=== PATIENT | male | born 1970 | race Caucasian/White ===

== ENCOUNTER 2021-06-02 18:08 | Emergency (ER) | payer OTHER ==
[2021-06-02 18:22] VITALS: BP 150/92
--- NOTE | 2021-06-02 19:39 | ED Physician Documentation ---
History of Present Illness - Stated complaint Stated Complaint: NOSE INJURY - Chief complaint Chief Complaint: Laceration - History obtained from History obtained from: Patient - History of Present Illness Timing: Today Pain level max: 5 Pain level now: 4 - Additonal information Additional information: Patient is a 50-year-old male who was at work today when a pipe came down and struck him across the bridge of the nose causing a laceration. This happened several hours prior to arrival. Unknown last tetanus. Worse with palpation, nothing makes it better. No headache, no loss of consciousness. No epistaxis. No vision changes. No neck or back pain Review of Systems Constitutional: denies: Fever, Chills GI: denies: Vomiting Skin: denies: Rash Musculoskeletal: denies: Neck pain, Back pain Neurologic: denies: Seizure, Confused, LOC PD PAST MEDICAL HISTORY - Past Medical History Past Medical History: No - Past Surgical History Past Surgical History: Yes HEENT: Other - Present Medications Home Medications: Ambulatory Orders Medication Instructions Recorded Confirmed No Known Home Medications 06/02/21 06/02/21 - Allergies Allergies/Adverse Reactions: Allergies Allergy/AdvReac Type Severity Reaction Status Date / Time ciprofloxacin [From Cipro] Allergy Rash Verified 06/02/21 18:19 - Social History Does the pt smoke?: No Smoking Status: Never smoker Does the pt drink ETOH?: Yes Does the pt have substance abuse?: No - Immunizations Immunizations are current?: Yes PD ED PE NORMAL - Vitals Vital signs reviewed: Yes - General General: Alert and oriented X 3, No acute distress - HEENT HEENT: PERRL, Moist mucous membranes, Other (No scalp hematomas. There is a 1 cm laceration to the bridge of the nose. Mild swelling. No septal hematomas. No epistaxis. No facial bone tenderness other than the bridge of the nose. No d eformity. 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, No motor deficit, No sensory deficit, Normal speech Eye Opening: Spontaneous Motor: Obeys Commands Verbal: Oriented GCS Score: 15 Results - Vitals Vitals: Oxygen O2 Source Room air Procedures - Laceration (location) nasal Length in cm: 1 Wound type: Linear, Superficial Neurovascular status: Sensory intact, Motor intact, Vascular intact Wound preparation: Irrigated copiously NS Skin layer closure: Dermabond Other: Patient tolerated well, No complications, Neurovascular intact, Tetanus booster given PD MEDICAL DECISION MAKING - ED course Complexity details: considered differential, d/w patient ED course: Laceration repaired with Dermabond. Tolerated well. No indication for head CT or imaging of the nasal bones at this time. No septal hematoma. Warnings of infection and instructions on wound care given at bedside. Also counseled on how to minimize scarring. Patient counseled regarding signs and symptoms for which I believe and urgent re-evaluation would be necessary. Patient with good understanding of and agreement to plan and is comfortable going home at this time This document was made in part using voice recognition software. While efforts are made to proofread this document, sound alike and grammatical errors may occur. No evidence of intracranial hemorrhage or skull fracture. Departure - Departure Disposition: 01 Home, Self Care Clinical Impression: Nasal laceration Qualifiers: Encounter type: initial encounter Qualified Code(s): S01.21XA - Laceration without foreign body of nose, initial encounter Condition: Good Instructions: ED Contusion Nasal Vs Fx No X Ray, ED Laceration Facial Skin Glue Follow-Up: your,doctor as needed. [Other] Comments: You can use motrin or tylenol as needed for pain. The glue will dissolve on its own. Do not apply ointment as this may dissolve the glue. You can use ice at home as well. Return if you worsen. You were given a tetanus shot today. Discharge Date/Time: 06/02/21 19:49
[2021-06-02] MEDS: TETANUS/DIPHTHERIA/PERTUSSIS 0.5 ML SYRINGE IM ONE (19:45)
== END 2021-06-02 19:49 | disposition home or self-care (01) ==
LOC: ED 18:08
DX: S01.21XA Laceration without foreign body of nose, initial encounter (principal); W20.8XXA Other cause of strike by thrown, projected or falling object, initial encounter; Y99.0 Civilian activity done for income or pay; Z23 Encounter for immunization
CPT/HCPCS: 12011; 90471; 99282; 99283

== ENCOUNTER 2023-05-26 21:12 | Emergency (ER) | payer OTHER ==
[2023-05-26 21:22] VITALS: BP 160/80
--- OUTSIDE RECORDS SUMMARY | 2023-05-26 22:00 | EXTERNAL MEDICAL SUMMARY RPT | Continuity of Care Document ---
Author Name Unknown Address [address] [place] [address] Phone Organization [facility] Address [address] [place] [address] Phone Care Team Providers Care Horse Rider Name Role Phone Tyrone Person Unavailable Unavailable Medications date description facility 2023-03-11 00:00 cetirizine hcl 10 mg oral table t [facility] 2023-03-11 00:00 fluticasone propiona te 50 mcg/actuat metered dose nasal spray [facility] 2023-03-11 00:00 ascorbic acid 1000 mg oral tabl et [facility] 2023-03-11 00:00 vitamin d3 1000 unt oral tablet [facility] 2023-03-11 00:00 Drug or medicament (substance) [facility] 2023-03-11 00:00 omega-3 acid ethyl [facility] ([facility] 1000 mg oral capsule [facility] Social History date description facility 2023-03-11 00:00 Light tobacco smoker [facility]
--- NOTE | 2023-05-26 23:47 | ED Physician Documentation ---
History of Present Illness - Stated complaint Stated Complaint: BEE STING - Chief complaint Chief Complaint: Wound - History obtained from History obtained from: Patient - Additonal information Additional information: HPI from patient. Patient c/o right hand swelling since 11 AM today when he was stung by a bee. He is right hand dominant. Has not had similar symptoms in the past although does not recall last time he was stung by a bee. Denies dyspnea, denies throat/chest tightness. 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 Review of Systems Cardiac: reports: Reviewed and negative Respiratory: reports: Reviewed and negative Musculoskeletal: reports: Extremity pain, Extremity swelling PD PAST MEDICAL HISTORY - Past Medical History Past Medical History: No - Past Surgical History Past Surgical History: Yes HEENT: Other - Present Medications Home Medications: Ambulatory Orders Medication Instructions Recorded Confirmed predniSONE [Deltasone] 40 mg PO DAILY 4 Days #8 tablet 05/27/23 - Allergies Allergies/Adverse Reactions: Allergies Allergy/AdvReac Type Severity Reaction Status Date / Time ciprofloxacin [From Cipro] Allergy Rash Verified 05/26/23 21:15 - Social History Does the pt smoke?: No Smoking Status: Never smoker Does the pt drink ETOH?: Yes Does the pt have substance abuse?: No - Immunizations Immunizations are current?: Yes PD ED PE NORMAL - Vitals Vital signs reviewed: Yes - General General: Alert and oriented X 3, No acute distress, Well developed/nourished - HEENT HEENT: Pharynx benign (no [place]/intraoral edema (lips/tongue/posterior oropharynx)) - Respiratory Respiratory: No respiratory distress, Clear bilaterally - Derm Derm: No rash PD ED PE EXPANDED - Extremities Extremities: Other (right hand edema with mild and poorly marginated erythema, with swelling and erythema predominantly palmar surface. no FB (such as stinger) noted). brisk capillary refill in fingertips and LTS intact) Results - Vitals Vitals: Oxygen O2 Source Room air PD Medical Decision Making - ED course Complexity details: considered differential, d/w patient ED course: large but focal reaction to bee sting on patient's right hand. No elements of HPI nor exam to suggest generalized reaction. He had taken 50mg PO benadryl shortly before ED arrival. He is in NAD. Given 40mg PO prednisone and 20mg PO famotidine in ED, with rx for short course of QD prednisone. Return precautions discussed Departure - Departure Disposition: 01 Home, Self Care Clinical Impression: Bee sting reaction Qualifiers: Encounter type: initial encounter Injury intent: accidental or unintentional Qualified Code(s): T63.441A - Toxic effect of venom of bees, accidental (unintentional), initial encounter Condition: Good Instructions: ED Bite Sting Insect Gen Allergic React Prescriptions: predniSONE [Deltasone] 40 mg PO DAILY 4 Days #8 tablet Comments: The reaction to the bee sting appears to be localized to the right hand in the area of the initial sting. For this, you are given a dose of steroid (prednisone) in the emergency department, and I am electronically submitting a prescription for a few more days of the prednisone to the [facility] in [place]. You are also given a dose of Pepcid in the emergency department; as we discussed, this can have a slight beneficial effect for allergic reactions when used in addition to a more traditional antihistamine such as Benadryl. Along these lines, and as we discussed, you should continue the Benadryl per the label instructions as needed for the symptoms. Also, Pepcid is an [id number] medication, thus no prescription is necessary. When you fern picker the prescription for the steroid, if you do not have any Pepcid at home, you should buy some and take Pepcid once per day until the symptoms resolve. Forms: PCP List Discharge Date/Time: 05/27/23 00:23
[2023-05-27] MEDS ORDERED: predniSONE 20 MG TABLET PO STA (00:07)
[2023-05-27] MEDS ORDERED: FAMOTIDINE 20 MG TABLET PO STA (00:07)
== END 2023-05-27 00:23 | disposition home or self-care (01) ==
LOC: ED 21:12
DX: T63.441A Toxic effect of venom of bees, accidental (unintentional), initial encounter (principal)
CPT/HCPCS: 99282; 99283; A9270; J7512